=== PATIENT | female | born 1980 | race Caucasian/White ===

== ENCOUNTER 2023-08-11 11:52 | Emergency (ER) | payer MEDICAID, SELFPAY ==
--- NOTE | 2023-08-11 12:00 | DI.RAD_ITS ---
Exam(s) XR FOOT RT COMPLETE EXAM: XR FOOT RT COMPLETE CLINICAL HISTORY: punctured foot with hayfork. TECHNIQUE: 2D digital imaging was performed of the right foot. Three images were obtained. AP, obl ique and lateral views were obtained. COMPARISON: No exams were available for comparison FINDINGS: BONES: No acute fracture is present. No bony destructive lesion is seen. JOINTS: No dislocation present. SOFT TISSUE: Normal. No radiopaque foreign bodies. No soft tissue gas is seen. IMPRESSION: Unremarkable radiographs of the right foot. DATA REPOSITORY: RADIATION DOSE DELIVERED:
[2023-08-11 12:04] VITALS: BP 114/89; PULSE 86; RESP 16; TEMP 37.1; O2SAT 97
--- NOTE | 2023-08-11 12:13 | ED.GENADUL_ITS ---
Discharge Plan Disposition Patient Disposition: Home Condition: Stable Discharge Details Clinical Impression: Puncture wound of foot, right Primary Care Provider: Unknown,Unknown ED Provider: Konrad Talavera Home Meds and New Rx's Prescriptions: New amoxicillin-pot clavulanate 875-125 mg tablet 1 tab PO BID Qty: 14 0RF No Action propranolol .ROUTE PRN Discharge Instructions Instructions: Puncture Wound (ED) Additional Instructions: If you have signs of infection such as spreading redness or yellow-white discharge from the wound return to the emergency department for reevaluation HPI General Mode of arrival: ambulatory . Date/Time Provider Initiated Documentation: 08/11/23 12:08 . Limitations to Documentation: no limitations . Information obtained by: patient . History of Present Illness 43 year old F presents to the emergency department with the chief complaint of punctured right superior foot with hayfork, described as moderate, Patient started experiencing this hour(s) (1) and it has been constant. No relieving factors improve symptom(s), No exacerbating factors reported . Patient notes no other symptoms.. Patient did receive the following treatments prior to arrival, none Related Data Home Medications Medication Instructions Recorded Confirmed amoxicillin 875 mg-potassium 1 tab PO BID #14 tabs 08/11/23 clavulanate 125 mg tablet propranolol .ROUTE PRN 08/11/23 Previous Rx's Medication Instructions Recorded amoxicillin 875 mg-potassium 1 tab PO BID #14 tabs 08/11/23 clavulanate 125 mg tablet Allergies Allergy/AdvReac Type Severity Reaction Status Date / Time No Known Allergies Allergy Unverified 08/11/23 12:08 General Stated Complaint: Orthopedic CHACORTA: 4 Review of Systems All systems reviewed & are unremarkable except as noted in HPI and below Constitutional Constitutional: Denies chills, Denies fever(s) and Denies weakness ENT Ears, Nose, Mouth, and Throat: Denies change in voice Cardiovascular Cardiovascular: Denies chest pain and Denies dyspnea Respiratory Respiratory: Denies cough and Denies dyspnea Gastrointestinal Gastrointestinal: Denies abdominal pain, Denies nausea and Denies vomiting Musculoskeletal Musculoskeletal: Denies joint swelling Neurologic Neurologic: Denies weakness Exam Const General: no acute distress Orientation: alert HENMT Head: normal to inspection Ears: external ears normal General nose exam: external nose normal Mouth: moist mucous membranes Eyes General: appearance normal, both eyes and all related structures Neck Neck: normal visual inspection Resp Effort & Inspection: normal respiratory effort and able to speak in complete sentences Cardio Rate: regular rate Skin General skin exam: no rashes or lesions noted Neuro General: patient alert and patient oriented x3 Extrem General: full ROM and capillary refill normal Psych Mental Status: mental status grossly normal Course Vital Signs Vital signs: Vital Signs Temperature 37.1 C 08/11/23 12:04 Pulse 86 08/11/23 12:04 Respiratory Rate 16 08/11/23 12:04 Blood Pressure 114/89 08/11/23 12:04 Pulse Oximetry 97 08/11/23 12:04 Temperature 37.1 C 08/11/23 12:04 Pulse 86 08/11/23 12:04 Respiratory Rate 16 08/11/23 12:04 Blood Pressure 114/89 08/11/23 12:04 Pulse Oximetry 97 08/11/23 12:04 Oxygen Delivery Method Room Air 08/11/23 12:04 Oxygen Flow Rate 0 08/11/23 12:04 Medical Decision Making 43-year-old female who denies any significant past medical history comes in with a puncture wound to the right foot. She says she was using a fork and excellently hit her right superior foot. Denies falls or other injuries. She is unsure of her tetanus status. She has a half a centimeter circular puncture wound on the right mid superior foot. No drainage, no palpable foreign body, intact sensation and pulses. Will obtain x-rays to exclude radiopaque foreign body though seems unlikely based on exam. Will also provide her with a Tdap and Augmentin and clean the wound. X-ray unremarkable, patient stable will place on Augmentin and advised to follow-up with her PCP if not improving and return precautions given Differential Diagnosis Differential Diagnosis: Puncture wound, foreign body Quality:SDOH Health Related Social Needs: No Data to Display PFSH All Active Problems (Updated 08/11/23 @ 12:28 by Konrad Talavera MD) Puncture wound of foot, right (Acute) Social History Smoking/Tobacco Use Status: Never Smoking risk assessment performed?: Yes Drug use: Never Substance use type: does not use Housing: house Do you feel safe at home: Yes
[2023-08-11] MEDS: Amoxicillin 875/Clav. 125 TAB PO (12:30)
--- NOTE | 2023-08-11 13:21 | DI.VRAD_ITS ---
PROCEDURE INFORMATION: Exam: XR Right Foot Exam date and time: 08/11/2023 12:44 PM Age: 43 years old Clinical indication: Injury or trauma; Other: Punctured foot with hayfork TECHNIQUE: Imaging protocol: Radiologic exam of the right foot. Views: 3 or more views. COMPARISON: No relevant prior studies available. FINDINGS: Bones/joints: There is no evidence of acute fracture.There is no evidence of malalignment or dislocation. Soft tissues: Normal. IMPRESSION: There is no evidence of acute fracture.There is no evidence of malalignment or dislocation. Dictated and Authenticated by: Leda Kaiser MD. Ordering:JULIENNE Silvestre MD
== END 2023-08-11 13:56 | disposition home or self-care (01) ==
PROVIDERS: Emergency Provider Emergency Medicine
DX: S91.331A Puncture wound without foreign body, right foot, initial encounter (principal); W27.1XXA Contact with garden tool, initial encounter
CPT/HCPCS: 90471; 90715; 99284; 73630; 99283